=== PATIENT | female | born 2005 | race African-American/Black ===

== ENCOUNTER 2023-10-30 19:12 | Emergency (ER) | payer OTHER ==
[~2023-10-30] VITALS: Ht 167.6 cm; Wt 72.4 kg
[2023-10-30 20:28] LABS: RSV AMPLIFICATION NEGATIVE (NEGATIVE)
[2023-10-30] MEDS ORDERED: IBUPROFEN 800 MG TAB PO ONE (21:05)
[2023-10-30 21:33] VITALS: BP 119/62; TEMP 101.4; O2SAT 100
== END 2023-10-30 21:40 | disposition home or self-care (01) ==
LOC: M ED 19:12
DX: U07.1 COVID-19 (principal)

== ENCOUNTER 2024-02-08 08:07 | Emergency (ER) | payer OTHER ==
[~2024-02-08] VITALS: Ht 170.2 cm; Wt 77.0 kg
[2024-02-08] MEDS ORDERED: IBUP-1022 PO (08:15)
[2024-02-08] MEDS ORDERED: BIRTH CONTROL PILL (08:15)
[2024-02-08 09:08] LABS: RSV AMPLIFICATION NEGATIVE (NEGATIVE)
[2024-02-08 12:42] VITALS: BP 159/85; TEMP 99; O2SAT 99
== END 2024-02-08 12:43 | disposition home or self-care (01) ==
LOC: M ED 08:07
DX: R10.10 Upper abdominal pain, unspecified (principal); F17.200 Nicotine dependence, unspecified, uncomplicated; Z79.1 Long term (current) use of non-steroidal anti-inflammatories (NSAID)

== ENCOUNTER 2024-04-10 18:47 | Emergency (ER) | payer OTHER ==
[~2024-04-10] VITALS: Ht 167.6 cm; Wt 76.0 kg
[2024-04-10 18:47] VITALS: BP 153/90; TEMP 98.4; O2SAT 99
[~2024-04-10 18:47] MED LIST: BIRTH CONTROL PILL; IBUP-1022 PO
[2024-04-10] MEDS ORDERED: ACET32TAB PO (18:57)
== END 2024-04-10 22:06 | disposition left against medical advice (07) ==
LOC: M ED 18:47
DX: Z53.21 Procedure and treatment not carried out due to patient leaving prior to being seen by health care provider (principal)

== ENCOUNTER 2024-10-09 07:17 | Emergency (ER) | payer OTHER ==
[~2024-10-09] VITALS: Ht 167.6 cm; Wt 79.4 kg
[~2024-10-09 07:17] MED LIST changes: +ACET32TAB PO
[2024-10-09] MEDS ORDERED: NORG1TAB38 (07:29)
[2024-10-09 10:58] LABS: BASO % 0.8 % (0.0-1.0); HEMATOCRIT 35.7 % (36.0-47.0); LYMPH # 1.3 10^3/uL (1.5-5.0); LYMPH % 31.8 % (24.0-44.0); MEAN CORPUSCULAR HEMOGLOBIN 25.9 pg (27.0-33.0); MEAN CORPUSCULAR HGB CONC 30.8 g/dl (32.0-36.5); MONO # 0.3 10^3/uL (0.0-0.8); MONO % 7.5 % (2.0-8.0); NEUTROPHILS # 2.4 10^3/uL (1.5-8.5); NEUTROPHILS % 58.9 % (36.0-66.0); PLATELET COUNT, AUTOMATED 336 10^3/uL (150-450); RED BLOOD COUNT 4.25 10^6/uL (4.00-5.40)
[2024-10-09 11:18] LABS: LIPASE 38 U/L (12-53)
[2024-10-09 11:21] LABS: ALBUMIN 3.2 G/DL (3.2-5.2); ALKALINE PHOSPHATASE 63 U/L (35-104); ALT/SGPT 12 U/L (7.0-40); AST/SGOT 12 U/L (<34); BILIRUBIN,DIRECT 0.1 MG/DL (<0.4); BILIRUBIN,TOTAL 0.4 MG/DL (0.3-1.2); BLOOD UREA NITROGEN 12 MG/DL (9-23); CALCIUM LEVEL 9.4 MG/DL (8.5-10.1); CARBON DIOXIDE LEVEL 25 MMOL/L (20-31); CHLORIDE LEVEL 108 MMOL/L (98-107); CREATININE FOR GFR 0.71 MG/DL (0.55-1.30); GLOMERULAR FILTRATION RATE > 60.0 (>60); GLUCOSE, FASTING 86 MG/DL (60-100); POTASSIUM SERUM 4.2 MMOL/L (3.5-5.1); SODIUM LEVEL 137 MMOL/L (136-145); TOTAL PROTEIN 7.1 G/DL (5.7-8.2)
[2024-10-09 11:23] LABS: HCG, SERUM QUALITATIVE NEGATIVE (NEGATIVE)
[2024-10-09 12:10] VITALS: BP 113/60; TEMP 97.6; O2SAT 99
== END 2024-10-09 12:22 | disposition home or self-care (01) ==
LOC: M ED 07:17
DX: R10.9 Unspecified abdominal pain (principal); A04.72 Enterocolitis due to Clostridium difficile, not specified as recurrent; A04.0 Enteropathogenic Escherichia coli infection; F17.200 Nicotine dependence, unspecified, uncomplicated; Z79.1 Long term (current) use of non-steroidal anti-inflammatories (NSAID); Z79.899 Other long term (current) drug therapy

== ENCOUNTER 2025-09-23 08:47 | Emergency (ER) | payer OTHER ==
[~2025-09-23] VITALS: Ht 167.6 cm; Wt 83.0 kg
[~2025-09-23 08:47] MED LIST changes: -IBUP-1022 PO; +IBUP600T42 PO; +NORG1TAB38
[2025-09-23] MEDS: NS (Normal Saline) 0.9% 1,000 ML IV ONE (11:48)
[2025-09-23] MEDS: BENZONATATE 100 MG CAPSULE PO ONE (11:49)
[2025-09-23] MEDS: ALBUTEROL SULFATE 2.5 MG/0.5 ML INH CONCENTRATE NEB SOLN NEB ONE (11:49)
[2025-09-23 12:00] LABS: BASO # 0.0 10^3/uL (0.0-0.2); BASO % 0.8 % (0.0-1.0); EOS # 0.0 10^3/uL (0.0-0.5); EOS % 0.4 % (0.0-3.0); LYMPH # 1.4 10^3/uL (1.5-5.0); LYMPH % 27.8 % (24.0-44.0); MONO # 0.6 10^3/uL (0.0-0.8); MONO % 11.3 % (2.0-8.0); NEUTROPHILS # 3.1 10^3/uL (1.5-8.5); NEUTROPHILS % 59.5 % (36.0-66.0); PLATELET COUNT, AUTOMATED 297 10^3/uL (150-450)
[2025-09-23 12:34] LABS: CK-MB VALUE MASS < 1.0 NG/ML (<3.6)
[2025-09-23 12:36] LABS: CPK CREATINE PHOSPHOKINASE 96 U/L (34-145)
[2025-09-23 12:46] LABS: HCG, SERUM QUALITATIVE NEGATIVE (NEGATIVE)
[2025-09-23] MEDS ORDERED: ISOVUE-370 76% 100 ML VIAL As Ordered ONE (12:52)
[2025-09-23 13:22] VITALS: TEMP 98.7
[2025-09-23 13:45] VITALS: BP 123/78; O2SAT 100
[2025-09-23] MEDS ORDERED: BENZ200C70 PO (13:55)
[2025-09-23] MEDS ORDERED: ALBU8.5H INH (13:55)
[2025-09-23] MEDS ORDERED: ELIQ5TAB PO (13:55)
== END 2025-09-23 14:13 | disposition home or self-care (01) ==
LOC: M ED 08:47
DX: J06.9 Acute upper respiratory infection, unspecified (principal); B34.8 Other viral infections of unspecified site; R05.9 Cough, unspecified; I26.99 Other pulmonary embolism without acute cor pulmonale; Z79.52 Long term (current) use of systemic steroids; Z79.1 Long term (current) use of non-steroidal anti-inflammatories (NSAID); Z79.899 Other long term (current) drug therapy; Z79.01 Long term (current) use of anticoagulants
CPT/HCPCS: 71275; 80047; 82550; 82553; 84484; 84703; 85025; 85379; 87486; 87581; 87633; 87798; 96360; 96361; 99284; Q9967